=== PATIENT | female | born 1995 | race Caucasian/White ===

== ENCOUNTER 2022-01-13 19:15 | Emergency (ER) | payer MEDICAID ==
[~2022-01-13] VITALS: Ht 160 cm; Wt 124.3 kg
[2022-01-13 19:37] VITALS: BP 157/96
--- NOTE | 2022-01-13 20:45 | NUR ---
CALLED PATIENT BACK NO RESPONSE.
--- NOTE | 2022-01-13 21:50 | NUR ---
CALLED PATIENT BACK FROM LOBBY, OUTSIDE, AND PARKING LOT, NO RESPONSE.
--- NOTE | 2022-01-13 22:50 | NUR ---
PATIENT LEFT WITHOUT BEING SEEN BY DR. MANDUJANO. NO FURTHER CARE PROVIDED FOR PATIENT.
== END 2022-01-13 22:50 | disposition left against medical advice (07) ==
LOC: MED 19:15
DX: S05.90XA Unspecified injury of unspecified eye and orbit, initial encounter (principal); Z53.21 Procedure and treatment not carried out due to patient leaving prior to being seen by health care provider; W21.03XA Struck by baseball, initial encounter; Y93.89 Activity, other specified; Y92.89 Other specified places as the place of occurrence of the external cause; Y99.8 Other external cause status

== ENCOUNTER 2022-09-10 19:51 | Emergency (ER) | payer MEDICAID ==
[~2022-09-10] VITALS: Ht 160 cm; Wt 122.5 kg
[2022-09-10 20:56] VITALS: BP 173/95
--- NOTE | 2022-09-10 22:58 | NUR ---
26YR OLD FEMALE BIB SELF C/O PAIN WITH URIANTION X 2DAYS. PT DENIES ABD PAIN DENIES FEVER CHILLS N/V/D. PT IS A&OX4 SKIN WARM AND DRY. PT STATES HAVING A BURNING PAIN WITH FREQ URINATION. NKDA NO MED HX
[2022-09-10] MEDS ORDERED: PHEN-1877 PO (23:30)
[2022-09-10] MEDS ORDERED: NITR100C7 PO (23:30)
[2022-09-10 23:32] VITALS: BP 148/89
--- NOTE | 2022-09-10 23:32 | NUR ---
Patient discharged with v/s stable. Written and verbal after care instructions given and explained BY DR. SCHUSTER Patient alert, oriented and verbalized understanding of instructions. Ambulatory with steady gait. All questions addressed prior to discharge. ID band removed. Patient advised to follow up with PMD. Rx of MACROBID, PYRIDIUM given. Patient educated on indication of medication including possible reaction and side effects. Opportunity to ask questions provided and answered.
== END 2022-09-10 23:42 | disposition home or self-care (01) ==
LOC: MED 19:51
DX: N39.0 Urinary tract infection, site not specified (principal); Z79.899 Other long term (current) drug therapy
CPT/HCPCS: 81002; 81025; 99283